=== PATIENT | male | born 1980 | race Caucasian/White ===

== ENCOUNTER 2017-06-18 16:39 | Emergency (ER) | payer SELFPAY ==
[~2017-06-18] VITALS: Ht 180.3 cm; Wt 90.7 kg
[2017-06-18 16:40] VITALS: BP_SYST 131
[2017-06-18] MEDS ORDERED: KETOROLAC TROMETHAMINE 30 MG VIAL IVP ONE (17:30)
[2017-06-18] MEDS ORDERED: ONDANSETRON HCL 4 MG/2 ML VIAL IVP ONE (17:30)
[2017-06-18] MEDS ORDERED: NACL 0.9% 1,000 ML IV ONE (17:30)
[2017-06-18] MEDS ORDERED: fentaNYL CITRATE/PF 100 MCG/2 ML AMP IM ONE (18:30)
[2017-06-18] MEDS ORDERED: ONDANSETRON 4 MG ODT TAB PO ONE (18:30)
[2017-06-18 19:02] VITALS: BP_SYST 122
== END 2017-06-18 19:02 | disposition home or self-care (01) ==
LOC: SED 16:39
DX: A08.4 Viral intestinal infection, unspecified (principal); R03.0 Elevated blood-pressure reading, without diagnosis of hypertension
CPT/HCPCS: 74021; 96361; 96374; 96375; 99284; J1885; J2405; J7030

== ENCOUNTER 2017-09-24 16:09 | Emergency (ER) | payer OTHER ==
[~2017-09-24] VITALS: Ht 180.3 cm; Wt 90.7 kg
[2017-09-24 16:13] VITALS: BP_SYST 118
[2017-09-24 17:05] VITALS: BP_SYST 118
== END 2017-09-24 17:05 | disposition home or self-care (01) ==
LOC: SED 16:09
DX: J04.0 Acute laryngitis (principal)
CPT/HCPCS: 99283

== ENCOUNTER 2020-10-31 11:39 | Emergency (ER) | payer MEDICAID ==
[~2020-10-31] VITALS: Ht 180.3 cm; Wt 119.3 kg
[~2020-10-31 11:39] MED LIST: ALBMDI INH; LIP20 PO; LISI-209 PO; METO-542 PO
[2020-10-31 12:06] VITALS: BP_SYST 119
[2020-10-31] MEDS ORDERED: HYDROcodone/ACETAMIN 10-325 MG TAB PO ONE (12:30)
[2020-10-31] MEDS ORDERED: KETOROLAC TROMETHAMINE 60 MG/2 ML VIAL IM ONE (12:30)
[2020-10-31] MEDS ORDERED: IBUP-1971 PO (13:34)
[2020-10-31] MEDS ORDERED: HYDR-3917 PO (13:34)
[2020-10-31 13:55] VITALS: BP_SYST 119
== END 2020-10-31 13:55 | disposition home or self-care (01) ==
LOC: SED 11:39
DX: M54.9 Dorsalgia, unspecified (principal); J45.909 Unspecified asthma, uncomplicated; Z79.899 Other long term (current) drug therapy
CPT/HCPCS: 96372; 99283; J1885

== ENCOUNTER 2021-04-11 22:11 | Emergency (ER) | payer MEDICAID ==
[~2021-04-11] VITALS: Ht 180.3 cm; Wt 120.2 kg
[~2021-04-11 22:11] MED LIST changes: +HYDR-3917 PO; +IBUP-1971 PO
[2021-04-11 22:12] VITALS: BP_SYST 158
[2021-04-11] MEDS ORDERED: methylPREDNISolone SOD SUCC/PF 62.5 MG/ML VIAL IVP ONE (22:15)
[2021-04-11] MEDS ORDERED: IPRATROPIUM/ALBUTEROL SULFATE 3 ML AMPUL.NEB (DUONEB) INH ONE ×3 (22:15)
[2021-04-11] MEDS ORDERED: MAGNESIUM SULFATE 1 GM/2 ML VIAL IVP ONE (22:15)
[2021-04-11] MEDS ORDERED: IPRATROPIUM/ALBUTEROL SULFATE 3 ML AMPUL.NEB (DUONEB) ONE (22:21)
[2021-04-11 23:18] LABS: CALCIUM 9.5 mg/dL (8.4-11.0); CREATININE 1.39 mg/dL (0.55-1.30); POTASSIUM 4.2 mmol/L (3.5-5.1)
[2021-04-11 23:24] LABS: ALBUMIN 4.4 g/dL (3.4-4.8); TOTAL BILIRUBIN 0.6 mg/dL (0.0-1.0)
[2021-04-12 00:13] LABS: BASOPHILS % (AUTO) 0.5 % (0.0-2.0); EOSINOPHILS # (AUTO) 0.4 K/uL (0.0-0.4); EOSINOPHILS % (AUTO) 4.3 % (0.0-4.0); HEMATOCRIT 55.1 % (36-54); HEMOGLOBIN 19.1 g/dL (14.0-18.0); LYMPHOCYTES # (AUTO) 1.7 K/uL (1.0-5.5); LYMPHOCYTES % (AUTO) 18.2 % (20.5-51.5); MEAN CORPUSCULAR HEMOGLOBIN 31 pg (27-31); MEAN CORPUSCULAR HGB CONC 35 % (32-36); MEAN CORPUSCULAR VOLUME 90 fL (79.0-98.0); MONOCYTES # (AUTO) 0.4 K/uL (0.0-1.0); MONOCYTES % (AUTO) 4.4 % (1.7-9.3); NEUTROPHILS # (AUTO) 6.7 K/uL (1.8-7.7); NEUTROPHILS % (AUTO) 72.6 % (40.0-70.0); PLATELET COUNT (AUTO) 210 K/uL (130-430); RED BLOOD CELL COUNT(AUTO) 6.14 MIL/uL (4.2-6.2); RED CELL DISTRIBUTION WIDTH 13.5 % (9.0-15.0); WHITE BLOOD COUNT (AUTO) 9.2 K/uL (4.8-10.8)
[2021-04-12] MEDS ORDERED: NACL 0.9% 1,000 ML IV ONE (02:30)
[2021-04-12] MEDS ORDERED: PRED20TA PO ×2 (03:35→03:37)
[2021-04-12 03:49] VITALS: BP_SYST 148
[2021-05-04] MEDS ORDERED: METO50TA7 PO (07:58)
[2021-05-04] MEDS ORDERED: DILT180C67 PO (07:58)
== END 2021-04-12 03:51 | disposition left against medical advice (07) ==
LOC: SED 22:11
DX: R07.89 Other chest pain (principal); R06.02 Shortness of breath; J98.01 Acute bronchospasm; Z79.899 Other long term (current) drug therapy
CPT/HCPCS: 36415; 71045; 80053; 83880; 84484; 85025; 85379; 93005 ×2; 94640; 96361; 96374; 96375; 99285; J2930; J3475; J7030

== ENCOUNTER 2021-05-01 02:34 | Emergency (ER) | payer MEDICAID ==
[~2021-05-01] VITALS: Ht 180.3 cm; Wt 119.7 kg
[~2021-05-01 02:34] MED LIST changes: +PRED20TA PO
--- NOTE | 2021-05-01 02:35 | NUR ---
Patient to ER bed 2 to gown for evaluation. Side rails up. Report given to KIMBERLY.
--- NOTE | 2021-05-01 02:48 | NUR ---
ER at bedside examining patient.
[2021-05-01] MEDS ORDERED: ADENOSINE 6MG/2ML VIAL IVP ONE ×2 (03:00)
[2021-05-01] MEDS ORDERED: ADENOSINE 6MG/2ML VIAL ONE (03:01)
[2021-05-01 03:04] VITALS: BP_SYST 137
--- NOTE | 2021-05-01 03:04 | NUR ---
Thea ray in EDM - 05/01/21 at 0312 by [email or web address] Patient to ER bed 2 to heather for evaluation. Side rails up. Report given to KIMBERLY
[2021-05-01] MEDS ORDERED: ONDANSETRON HCL 4 MG/2 ML VIAL ONE (03:07)
[2021-05-01] MEDS ORDERED: ONDANSETRON HCL 4 MG/2 ML VIAL IVP ONE (03:15)
--- NOTE | 2021-05-01 03:40 | NUR ---
Patient given written and verbal discharge instructions and verbalizes understanding. ER MD discussed with patient the results and treatment provided. Patient in stable condition. ID arm band removed. IV catheter removed intact and dressing applied, no active bleeding. Patient educated on pain management and to follow up with PMD. Opportunity for questions provided and answered. Medication side effect fact sheet provided.
[2021-05-01 03:46] VITALS: BP_SYST 101
[2021-05-02] MEDS ORDERED: VERA120C2 PO ×2 (02:41)
[2021-05-04] MEDS ORDERED: METO50TA7 PO (07:58)
[2021-05-04] MEDS ORDERED: DILT180C67 PO (07:58)
== END 2021-05-01 03:46 | disposition home or self-care (01) ==
LOC: SED 02:34
DX: I47.1 Supraventricular tachycardia (principal); J45.909 Unspecified asthma, uncomplicated; Z79.899 Other long term (current) drug therapy
CPT/HCPCS: 93005; 96374; 96375; 99284; J0153; J2405

== ENCOUNTER 2021-05-02 02:30 | Emergency (ER) | payer MEDICAID ==
[~2021-05-02] VITALS: Ht 180.3 cm; Wt 122.5 kg
[2021-05-02 02:35] VITALS: BP_SYST 134
[2021-05-02] MEDS ORDERED: VERA120C2 PO ×2 (02:41)
[2021-05-02] MEDS ORDERED: ADENOSINE 6MG/2ML VIAL ONE (02:42)
[2021-05-02] MEDS ORDERED: ADENOSINE 6MG/2ML VIAL IVP ONE (02:45)
[2021-05-02] MEDS ORDERED: methylPREDNISolone SOD SUCC/PF 62.5 MG/ML VIAL ONE (03:09)
[2021-05-02] MEDS ORDERED: VERAPAMIL HCL 120 MG TABLET.SA PO ONE ×2 (03:13→03:15)
[2021-05-02] MEDS ORDERED: methylPREDNISolone SOD SUCC/PF 62.5 MG/ML VIAL IVP ONE (03:15)
[2021-05-02 03:53] VITALS: BP_SYST 148
[2021-05-04] MEDS ORDERED: DILT180C67 PO (07:58)
[2021-05-04] MEDS ORDERED: METO50TA7 PO (07:58)
== END 2021-05-02 03:53 | disposition home or self-care (01) ==
LOC: SED 02:30
DX: I47.1 Supraventricular tachycardia (principal); J45.909 Unspecified asthma, uncomplicated; Z79.899 Other long term (current) drug therapy
CPT/HCPCS: 93005; 96374; 96375; 99291; J0153; J2930